=== PATIENT | female | born 1975 ===

== ENCOUNTER → 2020-05-02 08:47 | Outpatient (BNVA) | payer MEDICAID, SELFPAY | PROVIDERS: PCP Internal Medicine; Referring Provider Internal Medicine; Visit Provider Student in an Organized Health Care Education/Training Program | DX: M06.9 Rheumatoid arthritis, unspecified (principal); Z71.89 Other specified counseling | CPT/HCPCS: 99211 ==

== ENCOUNTER 2020-07-24 13:22 | Outpatient (REF) | payer MEDICAID, SELFPAY ==
[2020-07-24 13:56] LABS: Eosinophils Percent Auto 0.7 % (0-4); Hematocrit 35.2 % (37-47); MANUAL DIFF FLAG SCAN; SCAN SMEAR FLAG 1
[2020-07-24 13:57] LABS: Basophils Percent Auto 0.4 % (0-2); Eosinophils Absolute Auto 0.1 X10*3/uL (0.0-0.4); Hemoglobin 10.4 g/dl (12.0-16.0); Imm Gran Abs Auto 0.03 X10*3/uL (0.00-0.03); Imm Gran Pct Auto 0.4 % (0.0-0.4); Lymphocytes Absolute Auto 1.5 X10*3/uL (1.2-4.9); Mean Corpuscular HGB Conc 29.5 g/dl (31.0-35.0); Mean Corpuscular Hemoglobin 20.4 pg (27.0-33.0); Mean Corpuscular Volume 69.2 fL (80-98); Mean Platelet Volume 10.7 fL (9.4-12.3); Monocytes Absolute Auto 0.7 X10*3/uL (0.1-1.2); Monocytes Percent Auto 8.5 % (2-11); Neutrophils Absolute Auto 5.7 X10*3/uL (2.0-8.3); Platelet Count 226 X10*3/uL (160-400); Red Blood Count 5.09 X10*6/uL (4.20-5.50); Red Cell Distribution Width 17.7 % (11.0-16.0)
[2020-07-24 14:02] LABS: PLT ABN DIST 1
[2020-07-24 14:27] LABS: Alanine Aminotransferase 9 U/L (0-31); Albumin Level 3.9 g/dL (3.5-5.0); Alkaline Phosphatase 72 U/L (39-117); Anion Gap 11 (12-20); Aspartate Amino Transferase 14 U/L (5-31); Bilirubin Total 0.5 mg/dL (0.0-1.0); Blood Urea Nitrogen 11 mg/dL (9-16); C Reactive Protein 0.09 mg/dL (< or = 0.50); Calcium 8.4 mg/dL (8.4-10.2); Carbon Dioxide 24 mmol/L (22-29); Chloride 107 mmol/L (96-108); Estimated Glomerular Filt Rate > 60; Glucose Random 97 mg/dL (60-115); Potassium 4.3 mmol/l (3.3-5.1); Sodium 138 mmol/L (135-145); Total Protein 6.5 g/dL (6.5-8.0)
[2020-07-24 14:50] LABS: SLIDE REVIEW VERIFIED
== END 2020-07-24 13:23 | disposition home or self-care (01) ==
LOC: HO.LAB 13:22
PROVIDERS: Visit Provider Student in an Organized Health Care Education/Training Program
DX: M05.9 Rheumatoid arthritis with rheumatoid factor, unspecified (principal)
CPT/HCPCS: 36415; 80053; 85025; 86140

== ENCOUNTER → 2020-07-27 12:27 | Outpatient (BNVA) | payer MEDICAID, SELFPAY | PROVIDERS: PCP Internal Medicine; Referring Provider Internal Medicine; Visit Provider Student in an Organized Health Care Education/Training Program | DX: M05.9 Rheumatoid arthritis with rheumatoid factor, unspecified (principal); D64.9 Anemia, unspecified | CPT/HCPCS: 99212 ==

== ENCOUNTER 2020-08-17 10:07 | Outpatient (REF) | payer MEDICAID, SELFPAY | END 2020-08-17 10:08 | disposition home or self-care (01) | LOC: HO.MDS 10:07 | PROVIDERS: Visit Provider Internal Medicine | DX: D50.9 Iron deficiency anemia, unspecified (principal) | CPT/HCPCS: 96365; J2916 ==

== ENCOUNTER 2020-08-22 13:18 | Outpatient (REF) | payer MEDICAID, SELFPAY | END 2020-08-22 13:19 | disposition home or self-care (01) | LOC: HO.MDS 13:18 | PROVIDERS: Visit Provider Internal Medicine | DX: D50.9 Iron deficiency anemia, unspecified (principal) | CPT/HCPCS: 96365; J2916 ==

== ENCOUNTER 2020-08-27 10:39 | Outpatient (REF) | payer MEDICAID, SELFPAY | END 2020-08-27 10:40 | disposition home or self-care (01) | LOC: HO.MDS 10:39 | PROVIDERS: Visit Provider Internal Medicine | DX: D50.9 Iron deficiency anemia, unspecified (principal) | CPT/HCPCS: 96365; J2916 ==

== ENCOUNTER 2020-09-11 12:33 | Outpatient (REF) | payer MEDICAID, SELFPAY | END 2020-09-11 12:34 | disposition home or self-care (01) | LOC: HO.MDS 12:33 | PROVIDERS: Visit Provider Internal Medicine | DX: D50.9 Iron deficiency anemia, unspecified (principal) | CPT/HCPCS: 96365; J2916 ==

== ENCOUNTER 2020-09-17 08:37 | Outpatient (REF) | payer MEDICAID, SELFPAY | END 2020-09-17 08:38 | disposition home or self-care (01) | LOC: HO.MDS 08:37 | PROVIDERS: Visit Provider Internal Medicine | DX: D50.9 Iron deficiency anemia, unspecified (principal) | CPT/HCPCS: 96365; J2916 ==

== ENCOUNTER 2020-09-24 13:07 | Outpatient (REF) | payer MEDICAID, SELFPAY | END 2020-09-24 13:08 | disposition home or self-care (01) | LOC: HO.MDS 13:07 | PROVIDERS: Visit Provider Internal Medicine | DX: D50.9 Iron deficiency anemia, unspecified (principal) | CPT/HCPCS: 96365; J2916 ==

== ENCOUNTER 2020-10-01 12:44 | Outpatient (REF) | payer MEDICAID, SELFPAY | END 2020-10-01 12:45 | disposition home or self-care (01) | LOC: HO.MDS 12:44 | PROVIDERS: Visit Provider Internal Medicine | DX: D50.9 Iron deficiency anemia, unspecified (principal) | CPT/HCPCS: 96365; J2916 ==

== ENCOUNTER 2020-12-25 14:51 | Outpatient (REF) | payer MEDICAID, SELFPAY ==
[2020-12-25 15:48] LABS: MANUAL DIFF FLAG NO
[2020-12-25 15:54] LABS: Basophils Percent Auto 0.4 % (0-2); Eosinophils Absolute Auto 0.1 X10*3/uL (0.0-0.4); Eosinophils Percent Auto 1.6 % (0-4); Hemoglobin 13.2 g/dl (12.0-16.0); Imm Gran Abs Auto 0.02 X10*3/uL (0.00-0.03); Imm Gran Pct Auto 0.3 % (0.0-0.4); Lymphocytes Absolute Auto 2.4 X10*3/uL (1.2-4.9); Lymphocytes Percent Auto 31.3 % (20-40); Mean Corpuscular HGB Conc 32.2 g/dl (31.0-35.0); Mean Corpuscular Hemoglobin 27.4 pg (27.0-33.0); Mean Corpuscular Volume 85.1 fL (80-98); Mean Platelet Volume 10.9 fL (9.4-12.3); Monocytes Absolute Auto 0.4 X10*3/uL (0.1-1.2); Monocytes Percent Auto 5.5 % (2-11); Neutrophils Absolute Auto 4.6 X10*3/uL (2.0-8.3); Neutrophils Percent Auto 60.9 % (45-73); Platelet Count 195 X10*3/uL (160-400); Red Blood Count 4.82 X10*6/uL (4.20-5.50); Red Cell Distribution Width 15.4 % (11.0-16.0); White Blood Count 7.5 X10*3/uL (4.8-10.8)
[2020-12-25 16:26] LABS: Alanine Aminotransferase 16 U/L (0-31); Albumin Level 4.3 g/dL (3.5-5.0); Alkaline Phosphatase 78 U/L (39-117); Aspartate Amino Transferase 22 U/L (5-31); Bilirubin Total 0.5 mg/dL (0.0-1.0); Blood Urea Nitrogen 12 mg/dL (9-16); C Reactive Protein 0.07 mg/dL (< or = 0.50); Calcium 9.2 mg/dL (8.4-10.2); Estimated Glomerular Filt Rate > 60; Glucose Random 110 mg/dL (60-115); Total Protein 7.1 g/dL (6.5-8.0)
[2020-12-25 16:35] LABS: Erythrocyte Sedimentation Rate 2 MM/HR (0-20)
[2020-12-25 16:36] LABS: Anion Gap 13 (12-20); Carbon Dioxide 25 mmol/L (22-29); Chloride 107 mmol/L (96-108); Potassium 3.8 mmol/L (3.3-5.1); Sodium 141 mmol/L (135-145)
[2020-12-26 07:56] LABS: HBc Num1 0.08 S/CO (0.00-0.79); Hepatitis A Antibody IgM 0.15 Index (0-0.79); Hepatitis B Core Antibody Nonreactive (Nonreactive); ~HepC Num1 0.07 S/CO (0.00-0.79); ~Hepatitis A Antibody IgM Nonreactive (Nonreactive); ~Hepatitis C Antibody Nonreactive (Nonreactive)
[2020-12-26 08:06] LABS: HBS Num1 0.48 mIU/mL (0-7.99); HBsAGNum1 0.27 S/CO (0.00-0.99); Hepatitis B Surface Antigen Negative (Negative); ~Hepatitis B Surface Antibody NONREACTIVE (Nonreactive)
[2020-12-28 13:52] LABS: TS Negative Control Passed; TS Panel A 0; TS Panel B 0; TS Positive Control Passed; TSpotTB Negative (SeeBelow)
== END 2020-12-25 14:52 | disposition home or self-care (01) ==
LOC: HO.LAB 14:51
PROVIDERS: PCP Internal Medicine; Visit Provider Student in an Organized Health Care Education/Training Program
DX: M05.9 Rheumatoid arthritis with rheumatoid factor, unspecified (principal); E03.9 Hypothyroidism, unspecified; F17.210 Nicotine dependence, cigarettes, uncomplicated; Z85.850 Personal history of malignant neoplasm of thyroid; Z79.899 Other long term (current) drug therapy; Z79.52 Long term (current) use of systemic steroids; D64.9 Anemia, unspecified
CPT/HCPCS: 36415; 80053; 85025; 85652; 86140; 86481; 86704; 86706; 86709; 86803; 87340; 99212

== ENCOUNTER → 2021-03-12 13:41 | Outpatient (BNVA) | payer MEDICAID, SELFPAY | PROVIDERS: PCP Internal Medicine; Visit Provider Student in an Organized Health Care Education/Training Program ==

== ENCOUNTER → 2021-04-26 08:55 | Outpatient (BNVA) | payer MEDICAID, SELFPAY | PROVIDERS: PCP Internal Medicine; Visit Provider Nurse Practitioner Family | DX: M05.9 Rheumatoid arthritis with rheumatoid factor, unspecified (principal); D64.9 Anemia, unspecified | CPT/HCPCS: 99212 ==

== ENCOUNTER 2021-05-15 12:32 | Outpatient (REF) | payer MEDICAID, SELFPAY ==
--- NOTE | ~2021-05-15 | XR_ITS ---
EXAMINATION: XR WRIST, LEFT CLINICAL INFORMATION: Rheumatoid arthritis COMPARISON: Previous x-ray May 2018 TECHNIQUE: PA, lateral, and oblique views of the left wrist. FINDINGS: No fracture or dislocation is seen. There is borderline ulnar minus variance. There are are degenerative changes at the distal radial ulnar joint. Joint spaces are otherwise normal. Soft tissues are normal. XR/XR wrist LT 2V IMPRESSION: Borderline ulnar minus variance and degenerative change at the distal radial ulnar joint.
--- NOTE | ~2021-05-15 | XR_ITS ---
EXAMINATION: XR ELBOW, LEFT CLINICAL INFORMATION: Pain COMPARISON: Previous x-ray April 2016 TECHNIQUE: AP, lateral, and oblique views of the left elbow. FINDINGS: Bone alignment is normal. No acute fracture or dislocation is seen. There is stable appearance of the radial head likely related to old healed fracture. There is mild arthritis at the radial head and capitellum joint. There is no joint effusion. XR/XR elbow LT 2V IMPRESSION: Old healed radial head fracture and mild arthritis at the radial head capitellum joint is similar to 2016 exam.
== END 2021-05-15 12:33 | disposition home or self-care (01) ==
LOC: HO.XRAY 12:32
PROVIDERS: PCP Internal Medicine; Visit Provider Nurse Practitioner Family
DX: M25.522 Pain in left elbow (principal); M05.9 Rheumatoid arthritis with rheumatoid factor, unspecified
CPT/HCPCS: 73070; 73100

== ENCOUNTER 2021-09-17 10:50 | Outpatient (REF) | payer MEDICAID, SELFPAY ==
--- NOTE | ~2021-09-17 | XR_ITS ---
EXAMINATION: XR FOOT, RIGHT XR HAND/WRIST, RIGHT CLINICAL INFORMATION: Pain. COMPARISON: None TECHNIQUE: AP, lateral, and oblique views of right foot. 3 views right hand/wrist. FINDINGS: RIGHT FOOT: Visualized bones and joints of the right foot are unremarkable. No bony erosive changes or spurring. No visible fracture or dislocation. The ankle mortise and subtalar joints are normal. There is a small calcaneal heel and retrocalcaneal enthesophyte. RIGHT HAND: There is no visible acute fracture, dislocation or subluxation right hand or right wrist. There is minimal loss of DIP joints 1st through 5th digits with minimal periarticular spurring 5th digit. The MCP joints are normal. No bony erosive changes or loose body seen. There is mild nonspecific dorsolateral wrist soft tissue swelling. XR/XR hand wrist RT IMPRESSION: Unremarkable right foot. Mild dorsolateral wrist soft tissue swelling. There is no underlying fracture or dislocation right hand or right wrist. Minimal degenerative changes DIP joints with mild degenerative spurring DIP joint 5th digit.
--- NOTE | ~2021-09-17 | XR_ITS ---
EXAMINATION: XR FOOT, RIGHT XR HAND/WRIST, RIGHT CLINICAL INFORMATION: Pain. COMPARISON: None TECHNIQUE: AP, lateral, and oblique views of right foot. 3 views right hand/wrist. FINDINGS: RIGHT FOOT: Visualized bones and joints of the right foot are unremarkable. No bony erosive changes or spurring. No visible fracture or dislocation. The ankle mortise and subtalar joints are normal. There is a small calcaneal heel and retrocalcaneal enthesophyte. RIGHT HAND: There is no visible acute fracture, dislocation or subluxation right hand or right wrist. There is minimal loss of DIP joints 1st through 5th digits with minimal periarticular spurring 5th digit. The MCP joints are normal. No bony erosive changes or loose body seen. There is mild nonspecific dorsolateral wrist soft tissue swelling. XR/XR foot RT min 3V IMPRESSION: Unremarkable right foot. Mild dorsolateral wrist soft tissue swelling. There is no underlying fracture or dislocation right hand or right wrist. Minimal degenerative changes DIP joints with mild degenerative spurring DIP joint 5th digit.
== END 2021-09-17 10:51 | disposition home or self-care (01) ==
LOC: HO.XRAY 10:50
PROVIDERS: PCP Family Medicine; Visit Provider Family Medicine
DX: M79.671 Pain in right foot (principal); M06.9 Rheumatoid arthritis, unspecified
CPT/HCPCS: 73110; 73130; 73630

== ENCOUNTER 2023-04-23 09:13 | Outpatient (REF) | payer MEDICAID, SELFPAY ==
[2023-04-23 11:15] LABS: MANUAL DIFF FLAG NO
[2023-04-23 11:26] LABS: Basophils Percent Auto 0.7 % (0-2); Eosinophils Absolute Auto 0.1 X10*3/uL (0.0-0.4); Eosinophils Percent Auto 2.4 % (0-4); Hematocrit 35.5 % (37.0-47.0); Hemoglobin 9.3 g/dl (12.0-16.0); Imm Gran Abs Auto 0.01 X10*3/uL (0.00-0.03); Imm Gran Pct Auto 0.2 % (0.0-0.4); Lymphocytes Absolute Auto 1.3 X10*3/uL (1.2-4.9); Lymphocytes Percent Auto 28.5 % (20-40); Mean Corpuscular HGB Conc 26.2 g/dl (31.0-35.0); Monocytes Absolute Auto 0.6 X10*3/uL (0.1-1.2); Monocytes Percent Auto 13.1 % (2-11); Neutrophils Absolute Auto 2.5 x10*3/uL (2.0-8.3); Neutrophils Percent Auto 55.1 % (45-73); Platelet Count 211 X10*3/uL (160-400); Red Blood Count 5.48 X10*6/uL (4.20-5.50); White Blood Count 4.5 X10*3/uL (4.8-10.8)
[2023-04-23 11:28] LABS: Mean Corpuscular Volume 64.8 fL (80.0-98.0)
[2023-04-23 11:33] LABS: Estimated Average Glucose 111 mg/dL; Hemoglobin A1c % 5.5 % (<6.0)
[2023-04-23 12:37] LABS: Folate 7.5 ng/mL (> or = 4.0); Vitamin B12 1079 pg/mL (200-900)
[2023-04-23 12:43] LABS: Thyroid Stimulating Hormone 0.36 uIU/mL (0.32-4.0); Vitamin D 25-OH Total 8.4 ng/mL (>30)
[2023-04-23 12:49] LABS: Anion Gap 10 (12-20)
[2023-04-23 12:54] LABS: Alanine Aminotransferase 32 U/L (0-31); Albumin Level 4.1 g/dL (3.5-5.0); Alkaline Phosphatase 101 U/L (39-117); Aspartate Amino Transferase 26 U/L (5-31); Bilirubin Direct 0.1 mg/dL (0.0-0.5); Bilirubin Total 0.3 mg/dL (0.0-1.0); Blood Urea Nitrogen 10 mg/dL (9-16); Calcium 9.1 mg/dL (8.4-10.2); Carbon Dioxide 24 mmol/L (22-29); Chloride 109 mmol/L (96-108); Cholesterol 165 mg/dL (<200); Estimated Glomerular Filt Rate > 60; Glucose Random 80 mg/dL (60-115); HDL Cholesterol 50 mg/dL (>40); Iron 14 mcg/dL (30-160); LDL Cholesterol Calculated 98 mg/dL (<100); Percent Iron Saturation 4 % (15-50); Sodium 139 mmol/L (135-145); Total Iron Binding Capacity 369 mcg/dL (228-428); Total Protein 7.5 g/dL (6.5-8.0); Triglycerides 88 mg/dL (<150); Unsaturated Iron Binding 355 ug/dL
[2023-04-24 07:42] LABS: Syphilis Screen Nonreactive (Nonreactive)
[2023-04-24 08:06] LABS: HBsAGNum1 0.39 S/CO (0.00-0.99); HIV AB/AG Nonreactive (Nonreactive); HIV Num 1 0.05 S/CO (0.00-0.99); Hepatitis B Surface Antigen Negative (Negative); ~HepC Num1 0.07 S/CO (0.00-0.79); ~Hepatitis B Surface Antibody NONREACTIVE (Nonreactive); ~Hepatitis C Antibody Nonreactive (Nonreactive)
[2023-04-24 08:11] LABS: Hepatitis A Antibody IgM 0.28 Index (0-0.79); ~Hepatitis A Antibody IgM Nonreactive (Nonreactive)
== END 2023-04-23 09:14 | disposition home or self-care (01) ==
LOC: HO.HHCL 09:13
PROVIDERS: Visit Provider Family Medicine
DX: G47.00 Insomnia, unspecified (principal)
CPT/HCPCS: 36415; 80048; 80061; 80076; 82306; 82607; 82746; 83036; 83540; 84439; 84443; 85025; 86706; 86709; 86780; 86803; 87340; 87389

== ENCOUNTER 2023-06-16 10:58 | Outpatient (AMB) | payer MEDICAID, SELFPAY ==
--- NOTE | 2023-06-16 11:18 | A.OFFVIS_ITS ---
Intake Vital Signs 06/16/23 11:19 Height 4 ft 11 in Weight 165 lb 12.602 oz BMI 33.5 BP 110/82 Blood Pressure Location Rt brachial Position Sitting Pulse 93 Pulse Source Pulse Oximeter Temp 97.6 F Temp Source Skin Pulse Oximetry (%) 98 Oxygen Delivery Method Room Air Intake Visit Reasons: RA Intake Note: Patient presents today to follow up on osteoporosis. Reports sheryl arm stiffness and pain. Kiln Repairer Required: No Kiln Repairer Name: [email or web address] Accompanied by: Self / Same As Patient Allergies penicillin V Allergy (Intermediate, Verified 06/16/23 11:18) rash HPI HPI Comments History of Present Illness Details Mrs. Romero is a 45yoF with a PMH of follicular thyroid CA s/p thyroidectomy in 2016 with resulting hypothyroidism, anxiety/depression, migraines who presents for follow-up of Seropositive (RF+ CCP +) RA. Last seen in April 2021. At that time she was thought to be on Arava 20 mg daily and was started on Kevzara. Today patient reports she is not on any of those medications and that she had one injection of Kevzara. She reports she did not want to take it because of the possible side effects. However on further questioning she did not like the injections and really would prefer an oral medication. Today she reports pain in bilateral elbow and showed concerns for contracture. She reports that when she stands up up from a seated position she feels like her left knee locks up. Patient feels that the depression is stable, she is taking fluoxetine. Immunomodulating history: Started Orencia in December 2020,Patient states she does not feel any improvement since starting Orencia.. Initially treated with MTX 4 tabs but had worsening anemia so MTX was stopped in November 2018. failed Humira and Enbrel. [facility] Medical History (Updated 06/16/23 @ 13:38 by MARCIE Yao-) Right elbow pain Anemia Migraine headache Depression Anxiety Seropositive rheumatoid arthritis Surgical History (Updated 06/16/23 @ 11:28 by CHAPIS Moe) Hx of appendectomy Hx of thyroidectomy Family History Maternal Grandmother Colon cancer Social History (Updated 06/16/23 @ 11:25 by Dalymar Lyn, RMA) Alcohol intake: never Patient Tobacco Use Status: Current everyday Tobacco user Tobacco use type: Cigarette Cigarettes Per Day: 6 Years Smoked: 30 Review of Systems Const All systems reviewed & are unremarkable except as noted in HPI and below Physical Exam Vital Signs: Last Vital Signs Temp 97.6 F 06/16/23 11:19 Pulse 93 06/16/23 11:19 BP 110/82 06/16/23 11:19 Pulse Ox 98 06/16/23 11:19 Oxygen Delivery Method Room Air 06/16/23 11:19 BMI result Body Mass Index 33.5 APPEARANCE: Patient in no acute distress, groomed and appears nourished EYES no redness, pupils equal and reactive to light, eyelids normal EARS:? External ear normal, canal clear and tympanic membrane normal. NOSE/SINUS:? Airflow through both nares, no nasal discharge, no bleeding THROAT:? Oral mucosa moist, no ulcerations NECK:? No thyromegaly or masses, no adenopathy, trachea midline. HEART:? Regular rhythm, S1-S2 heard, no murmurs, rubs or gallops. LUNG:? Clear to percussion and auscultation EXTREMITIES:? No edema, no calf tenderness, normal peripheral pulses. NEURO:? Oriented and alert x3.? No focal weakness.? Reflexes symmetric.? Gait normal. SKIN:? There are no skin lesions evident. No objective signs of Raynaud's phenomenon. JOINT EXAM: Cervical Spine:.? Full range of motion without pain; no tenderness. Thoracic Spine:.? No scoliosis.? No tenderness on palpation. Lumbar Spine:.? Alignment normal.? Full range of motion without pain, no tenderness. Chest Wall:.? No tenderness, swelling, increased warmth or erythema. Hands:.? Normal pain-free range of motion without tenderness, swelling, increased warmth or erythema. 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 Wrists:.? Normal pain-free range of motion without tenderness, swelling, increased warmth or erythema. Elbows:. decreased range of motion with tenderness, swelling and increased warmth to bilateral lateral epicondyles Shoulders:.?? Full range of motion without pain. No tenderness, weakness, swelling, increased warmth or erythema. Hips:.? Full range of motion without pain. mild tenderness to right glute Hip bursa:.? No tenderness. Knees:.?? Normal pain-free range of motion without tenderness, swelling, increased warmth or erythema.? There is no effusion or crepitation. tenderness to right lateral, area of fibia head Ankles:.? Normal pain-free range of motion without tenderness, swelling, increased warmth or erythema. Feet:.? Normal pain-free range of motion without tenderness, swelling, increased warmth or erythema. Tender points:? No tenderness to digital palpation at the occiput, trapezius, second rib, lateral epicondyle, knees, greater trochanter bilaterally, and left gluteal. Results Reviewed Results Reviewed: Laboratory Tests 04/23/23 09:25 WBC 4.5 L Hgb 9.3 L Hct 35.5 L MCV 64.8 L MCH 17.0 L MCHC 26.2 L RDW 20.0 H [place] % (Auto) 13.1 H Chloride 109 H Anion Gap 10 L Iron 14 L TIBC 369 % Saturation 4 L Unsat Iron Binding 355 AST 26 ALT 32 H Alkaline Phosphatase 101 Vitamin B12 1079 H 25-OH Vitamin D Total 8.4 L Hepatitis A IgM Ab Nonreactive Hep Bs Antibody NONREACTIVE Hepatitis C Ab (EIA) Nonreactive Assessment & Plan Assessment & Plan (1) Seropositive rheumatoid arthritis: Code(s): M05.9 - Rheumatoid arthritis with rheumatoid factor, unspecified (2) Left elbow pain: Code(s): M25.522 - Pain in left elbow (3) Right elbow pain: Code(s): M25.521 - Pain in right elbow (4) Anemia: Code(s): D64.9 - Anemia, unspecified Qualifiers: Anemia type: iron deficiency Iron deficiency anemia type: inadequate dietary iron intake Qualified Code(s): D50.8 - Other iron deficiency anemias Plan: (5) Long-term use of immunosuppressant medication: Code(s): Z79.60 - intermediate card tender (current) use of unspecified immunomodulators and immunosuppressants Plan #CCP+RF+RA/Sheryl Elbow Pain: Ms. Romero was diagnosed with seropositive rheumatoid arthritis (+ RF + CCP) in May 2018, based on first available labs. In reviewing the records, I found that she been tried on several medications and has reported all, but Prednisone to be ineffective for joint pain and swelling. At some times she has taken 10 mg prednisone up to 3 rimes daily. In talking with patient today I found that it may be possible that she was not compliant with taking the medications because they were injectables and she had concerns for the possible side effects that she has read about. I explain to Miss Heather that this type of medication class is needed in order to manage her RA effectively. She agrees to start immuno medications but would prefer an oral option. I will start her on Leflunomide. Will obtain xrays of elbow and Updated labs, start patient on a Course of Prednisone and consider Leflunomide if labs ok. #ID Anemia: Patient has long standing AMY - Per Smear done 04/2023 Variably hypochromic microcytic anemia. She is being followed by Hematology. She has had iron infusion in the past with good effect and is taking oral iron supplement daily. Immunomodulators brings an increased risk for myelosuppression so we will monitor closely. #Senior Care Use of Immunomodulators: Will obtain base labs today. Discussed with patients potential side effects of medications. However, I cautioned her not to think that all those things will happen to her. I discuss with her that we do monitor with labs and interval visits to observe for side effects and she can always call the office with concerns. Excerpts From Rheum Visit : July 2020 Patient states she took approximately 5 doses of Humira but stop medication on her own as she states that after each dose, she felt very weak and states the medication did not help her pain. December 2020: At last visit, Enbrel was ordered for patient's rheumatoid arthritis. She states she took approximately 4 injections sporadically and had headaches after each dose so she self discontinued the medication. She did not contact our office to let us know that she was having any of these symptoms. She continues to take prednisone 10 mg 3 times daily to help with her joint pain. She did not do the labs that were ordered after her last visit. March 2021 Patient states she does not feel any improvement since starting Orencia. She continues to report pain in her hands and feet that is generally worse at night. Also states that her feet can become swollen towards the end of the day. She has discontinued prednisone and does feel worse off the medication. Her previous inflammatory markers were at goal. Will discontinue orencia and start kevzara Orders: Orders Erythrocyte Sedimentation Rate 06/16/23 M05.9 - Rheumatoid arthritis with rheumatoid factor, unspecified Complete Blood Count Auto Diff 06/16/23 M05.9 - Rheumatoid arthritis with rheumatoid factor, unspecified, Z79.899 - Other mcfp (current) drug therapy C Reactive Protein 06/16/23 M05.9 - Rheumatoid arthritis with rheumatoid factor, unspecified Comprehensive Met. Panel 06/16/23 M05.9 - Rheumatoid arthritis with rheumatoid factor, unspecified XR elbow LT min 3V 06/16/23 M05.9 - Rheumatoid arthritis with rheumatoid factor, unspecified, M25.522 - Pain in left elbow XR elbow RT min 3V 06/16/23 M05.9 - Rheumatoid arthritis with rheumatoid factor, unspecified, M25.521 - Pain in right elbow T Spot TB 06/16/23 M05.9 - Rheumatoid arthritis with rheumatoid factor, unspecified, M25.522 - Pain in left elbow Medications: New prednisone 3 Tablets per day x 7 days, 2 tablets per day x 7 days, 1 tablet per day x 7 days. stop 60 tabs 0RF M05.9 - Rheumatoid arthritis with rheumatoid f actor, unspecified, M25.521 - Pain in right elbow, M25.522 - Pain in left elbow Coding Level of Care Code Est Pt Level 4 (92153) Diagnoses Seropositive rheumatoid arthritis M05.9 Left elbow pain M25.522 Right elbow pain M25.521 Iron deficiency anemia secondary to inadequate dietary iron intake D50.8 Anemia type: iron deficiency Iron deficiency anemia type: inadequate dietary iron intake Long-term use of immunosuppressant medication Z79.60
[2023-06-16 11:19] VITALS: BP 110/82; PULSE 93; TEMP 36.4; O2SAT 98; BMI 33.5
== END 2023-06-16 11:54 | disposition home or self-care (01) ==
LOC: HO.RHE 10:58
PROVIDERS: PCP Family Medicine; Visit Provider Nurse Practitioner Family
DX: M05.79 Rheumatoid arthritis with rheumatoid factor of multiple sites without organ or systems involvement (principal); M25.522 Pain in left elbow; M25.521 Pain in right elbow; D50.8 Other iron deficiency anemias; Z79.60 Long term (current) use of unspecified immunomodulators and immunosuppressants
CPT/HCPCS: 99214

== ENCOUNTER → 2023-06-16 10:58 | Outpatient (BNVA) | payer MEDICAID, SELFPAY | PROVIDERS: PCP Family Medicine; Visit Provider Nurse Practitioner Family | DX: M05.9 Rheumatoid arthritis with rheumatoid factor, unspecified (principal); M25.522 Pain in left elbow; M25.521 Pain in right elbow; D50.8 Other iron deficiency anemias; Z79.60 Long term (current) use of unspecified immunomodulators and immunosuppressants | CPT/HCPCS: 99212 ==

== ENCOUNTER 2023-06-16 12:28 | Outpatient (REF) | payer MEDICAID, SELFPAY ==
[2023-06-16 13:26] LABS: MANUAL DIFF FLAG NO
[2023-06-16 13:55] LABS: Basophils Percent Auto 0.5 % (0-2); Eosinophils Absolute Auto 0.1 X10*3/uL (0.0-0.4); Eosinophils Percent Auto 1.3 % (0-4); Hematocrit 34.9 % (37.0-47.0); Hemoglobin 9.4 g/dl (12.0-16.0); Imm Gran Abs Auto 0.03 X10*3/uL (0.00-0.03); Imm Gran Pct Auto 0.4 % (0.0-0.4); Lymphocytes Absolute Auto 2.1 X10*3/uL (1.2-4.9); Lymphocytes Percent Auto 26.5 % (20-40); Mean Corpuscular HGB Conc 26.9 g/dl (31.0-35.0); Mean Corpuscular Hemoglobin 16.9 pg (27.0-33.0); Monocytes Absolute Auto 0.8 X10*3/uL (0.1-1.2); Monocytes Percent Auto 9.5 % (2-11); Neutrophils Percent Auto 61.8 % (45-73); Platelet Count 218 X10*3/uL (160-400); Red Blood Count 5.56 X10*6/uL (4.20-5.50); Red Cell Distribution Width 21.2 % (11.0-16.0)
[2023-06-16 13:56] LABS: Mean Corpuscular Volume 62.8 fL (80.0-98.0)
[2023-06-16 14:34] LABS: Alanine Aminotransferase 22 U/L (0-31); Albumin Level 4.2 g/dL (3.5-5.0); Alkaline Phosphatase 107 U/L (39-117); Anion Gap 12 (12-20); Aspartate Amino Transferase 21 U/L (5-31); Bilirubin Total 0.4 mg/dL (0.0-1.0); Blood Urea Nitrogen 12 mg/dL (9-16); C Reactive Protein 0.11 mg/dL (< or = 0.50); Calcium 8.7 mg/dL (8.4-10.2); Carbon Dioxide 22 mmol/L (22-29); Chloride 110 mmol/L (96-108); Estimated Glomerular Filt Rate > 60; Glucose Random 91 mg/dL (60-115); Potassium 3.9 mmol/L (3.3-5.1); Sodium 140 mmol/L (135-145); Total Protein 7.6 g/dL (6.5-8.0)
[2023-06-16 15:03] LABS: Erythrocyte Sedimentation Rate 7 MM/HR (0-20)
== END 2023-06-16 12:29 | disposition home or self-care (01) ==
LOC: HO.10HDL 12:28
PROVIDERS: Visit Provider Nurse Practitioner Family
DX: M05.9 Rheumatoid arthritis with rheumatoid factor, unspecified (principal); M25.521 Pain in right elbow; M25.522 Pain in left elbow; Z79.60 Long term (current) use of unspecified immunomodulators and immunosuppressants
CPT/HCPCS: 36415; 80053; 85025; 85652; 86140; 99212

== ENCOUNTER 2023-07-14 09:18 | Outpatient (REF) | payer MEDICAID, SELFPAY ==
--- NOTE | ~2023-07-14 | XR_ITS ---
EXAMINATION: Bilateral elbow. CLINICAL INDICATIONS: Rheumatoid arthritis with rheumatoid factor. Pain. COMPARISON: Left elbow 04/21/2016 and 05/15/2021. TECHNIQUE: 4 views right elbow and 3 views left elbow. FINDINGS: RIGHT ELBOW: There is minimal reduction in the radioulnar and humeral joint space with moderate ventral spurring along the coronoid process. There is no joint effusion, loose bodies or fracture seen. The soft tissues are normal. LEFT ELBOW: The joint spaces are maintained normal. There are no loose bodies, bony erosive changes or spurring. No visible acute fracture, dislocation. No abnormal joint effusion. The soft tissues are normal.
[2023-07-14 10:56] LABS: Hemoglobin 9.2 g/dl (12.0-16.0); Mean Corpuscular HGB Conc 27.1 g/dl (31.0-35.0); Platelet Count 192 X10*3/uL (160-400); Red Cell Distribution Width 21.4 % (11.0-16.0); White Blood Count 5.8 X10*3/uL (4.8-10.8)
[2023-07-14 11:47] LABS: Iron 16 mcg/dL (30-160); Percent Iron Saturation 4 % (15-50); Total Iron Binding Capacity 368 mcg/dL (228-428); Unsaturated Iron Binding 352 ug/dL
[2023-07-14 11:53] LABS: Ferritin 6 ng/mL (10-250); Vitamin D 25-OH Total 10.3 ng/mL (>30)
[2023-07-14 12:08] LABS: Folate 8.3 ng/mL (> or = 4.0); Vitamin B12 615 pg/mL (200-900)
== END 2023-07-14 09:19 | disposition home or self-care (01) ==
LOC: HO.LAB 09:18
PROVIDERS: Family Medicine; Absent Provider Internal Medicine; PCP Internal Medicine; Visit Provider Nurse Practitioner Family
DX: M25.521 Pain in right elbow (principal); M05.9 Rheumatoid arthritis with rheumatoid factor, unspecified; M25.522 Pain in left elbow; D64.9 Anemia, unspecified
CPT/HCPCS: 36415; 73080; 82306; 82607; 82728; 82746; 83540; 85027

== ENCOUNTER 2023-07-17 12:29 | Outpatient (AMB) | payer MEDICAID, SELFPAY ==
--- NOTE | 2023-07-17 12:38 | A.OFFVIS_ITS ---
Intake Vital Signs 07/17/23 12:50 Height 4 ft 11 in Weight 163 lb 9.328 oz BMI 33.0 BP 122/96 H Blood Pressure Location Lt brachial Position Sitting Pulse 86 Pulse Source Pulse Oximeter Temp 97.2 F Temp Source Skin Pulse Oximetry (%) 97 Oxygen Delivery Method Room Air Intake Visit Reasons: Bilateral Elbow Pain, Seropos RA. Intake Note: Patient last seen 06/16/23, presents today for follow up and test results. Manufacturing Production Technician Required: No Accompanied by: Friend Allergies penicillin V Allergy (Intermediate, Verified 07/17/23 12:38) rash HPI HPI Comments History of Present Illness Details Mrs. Romero is a 45yoF with a PMH of follicular thyroid CA s/p thyroidectomy in 2016 with resulting hypothyroidism, anxiety/depression, migraines who presents for follow-up of Seropositive (RF+ CCP +) RA to review labs and assess for improvement on Prednisone. The patient cannot attest to great improvement on the course of Prednisone. She continues with elbow pain, left greater than right. Last Visit Mrs. Romero is a 45yoF with a PMH of follicular thyroid CA s/p thyroidectomy in 2016 with resulting hypothyroidism, anxiety/depression, migraines who presents for follow-up of Seropositive (RF+ CCP +) RA. Last seen in April 2021. At that time she was thought to be on Arava 20 mg daily and was started on Kevzara. Today patient reports she is not on any of those medications and that she had one injection of Kevzara. She reports she did not want to take it because of th e possible side effects. However on further questioning she did not like the injections and really would prefer an oral medication. Today she reports pain in bilateral elbow and showed concerns for contracture. She reports that when she stands up up from a seated position she feels like her left knee locks up. Patient feels that the depression is stable, she is taking fluoxetine. Immunomodulating history: Started Orencia in December 2020,Patient states she does not feel any improvement since starting Orencia.. Initially treated with MTX 4 tabs but had worsening anemia so MTX was stopped in November 2018. failed Humira and Enbrel. [facility] Medical History (Updated 06/16/23 @ 13:38 by LANDON Yao) Right elbow pain Anemia Migraine headache Depression Anxiety Seropositive rheumatoid arthritis Surgical History Hx of appendectomy Hx of thyroidectomy Family History Maternal Grandmother Colon cancer Social History (Updated 07/17/23 @ 12:51 by CHAPIS Dodd) Alcohol intake: never Patient Tobacco Use Status: Current everyday Tobacco user Tobacco use type: Cigarette Cigarettes Per Day: 10 Years Smoked: 30 Physical Exam Vital Signs: Last Vital Signs Temp 97.2 F 07/17/23 12:50 Pulse 86 07/17/23 12:50 BP 122/96 H 07/17/23 12:50 Pulse Ox 97 07/17/23 12:50 Oxygen Delivery Method Room Air 07/17/23 12:50 BMI result Body Mass Index 33.0 APPEARANCE: Patient in no acute distress, groomed and appears nourished HEART:? Regular rhythm, S1-S2 heard, no murmurs, rubs or gallops. LUNG:? Clear to percussion and auscultation EXTREMITIES:? No edema, no calf tenderness, normal peripheral pulses. NEURO:? Oriented and alert x3.? No focal weakness.? Reflexes symmetric.? Gait normal. SKIN:? There are no skin lesions evident. No objective signs of Raynaud's phenomenon. JOINT EXAM: Hands:.? Normal pain-free range of motion without tenderness, swelling, increased warmth or erythema. Able to make a full fist and has a good paragliding instructor strength. Wrists:.? Normal pain-free range of motion without tenderness, swelling, increased warmth or erythema. Elbows:. Bilateral Contracture, decreased range of motion with tenderness to left, left swelling but no increased warmth to bilateral lateral epicondyles Shoulders:.?? Full range of motion without pain. No tenderness, weakness, swelling, increased warmth or erythema. Hips:.? Full range of motion without pain. mild tenderness to right glute Hip bursa:.? No tenderness. Knees:.?? Normal pain-free range of motion without tenderness, swelling, increased warmth or erythema.? There is no effusion or crepitation. tenderness to right lateral, area of fibia head Ankles:.? Normal pain-free range of motion without tenderness, swelling, increased warmth or erythema. Feet:.? Normal pain-free range of motion without tenderness, swelling, increased warmth or erythema. Tender points:? No tenderness to digital palpation at the occiput, trapezius, second rib, lateral epicondyle, knees, greater trochanter bilaterally, and left gluteal. Office Procedures Joint Injection/Drain Joint Injection/Drain Primary Site: left tennis elbow Prep: site was prepped using aseptic technique Injected: 80 mg of, Kenalog, with 1 mL of and 1% plain lidocaine Approach Used: anterolateral Procedure: The patient tolerated the procedure well Coding 87477 - Epicondyle Procedure code (CPT) selection complete Results Reviewed Results Reviewed: Laboratory Tests 06/16/23 07/14/23 12:33 09:36 Hgb 9.2 L Hct 34.0 L MCV 63.0 L ESR 7 AST 21 ALT 22 Alkaline Phosphatase 107 C-Reactive Protein 0.11 07/14/2023 EXAMINATION: Bilateral elbow. CLINICAL INDICATIONS: Rheumatoid arthritis with rheumatoid factor. Pain. COMPARISON: Left elbow 04/21/2016 and 05/15/2021. TECHNIQUE: 4 views right elbow and 3 views left elbow. FINDINGS: RIGHT ELBOW: There is minimal reduction in the radioulnar and humeral joint space with moderate ventral spurring along the coronoid process. There is no joint effusion, loose bodies or fracture seen. The soft tissues are normal. LEFT ELBOW: The joint spaces are maintained normal. There are no loose bodies, bony erosive changes or spurring. No visible acute fracture, dislocation. No abnormal joint effusion. The soft tissues are normal. 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 Romero was diagnosed with seropositive rheumatoid arthritis (+ RF + CCP) in May 2018, based on first available labs. She says the prednisone helped a little. However, on PE i can see that the swelling to the left elbow is very reduced. I will start her on Leflunomide. Xrays of the left elbow suggest erosion. I think the RA is mainly in her elbows. She worried about the obvious contracture of her elbow joints. I will refer her to a phisiatry for evaluation and treatment. I will inject her left elbow today because of the pain. ESR/CRP at goal. #ID Anemia: Patient has long standing AMY - Per Smear done 04/2023 Variably hypochromic microcytic anemia. She is being followed by Hematology. She has had iron infusion in the past with good effect and is taking oral iron supplement daily. Immunomodulators brings an increased risk for myelosuppression so we will monitor closely. #Fdc Use of Immunomodulators: Discussed with patients potential side effects of medications. However, I cautioned her not to think that all those things will happen to her. I discuss with her that we do monitor with labs and interval visits to observe for side effects and she can always call the office with concerns. I have spent 30 minutes reviewing results, evaluating patient and documenting. Follow up in 2 months Excerpts From Rheum Visit : July 2020 Patient states she took approximately 5 doses of Humira but stop medication on her own as she states that after each dose, she felt very weak and states the medication did not help her pain. December 2020: At last visit, Enbrel was ordered for patient's rheumatoid arthritis. She states she took approximately 4 injections sporadically and had headaches after each dose so she self discontinued the medication. She did not contact our office to let us know that she was having any of these symptoms. She continues to take prednisone 10 mg 3 times daily to help with her joint pain. She did not do the labs that were ordered after her last visit. March 2021 Patient states she does not feel any improvement since starting Orencia. She continues to report pain in her hands and feet that is generally worse at night. Also states that her feet can become swollen towards the end of the day. She has discontinued prednisone and does feel worse off the medication. Her previous inflammatory markers were at goal. Will discontinue orencia and start kevzara Orders: Orders Erythrocyte Sedimentation Rate Today M05.9 - Rheumatoid arthritis with rheumatoid factor, unspecified C Reactive Protein Today M05.9 - Rheumatoid arthritis with rheumatoid factor, unspecified Alanine Aminotransferase Today M05.9 - Rheumatoid arthritis with rheumatoid factor, unspecified, Z79.899 - Other plasterer stucco (current) drug therapy Aspartate Amino Transferase Today M05.9 - Rheumatoid arthritis with rheumatoid factor, unspecified, Z79.899 - Other plasterer stucco (current) drug therapy AMB Joint Injection/Aspiration Today M25.522 - Pain in left elbow Complete Blood Count Auto Diff Today M05.9 - Rheumatoid arthritis with rheumatoid factor, unspecified, Z79.899 - Other retirement (current) drug therapy Creatinine Today M05.9 - Rheumatoid arthritis with rheumatoid factor, unspecified, Z79.899 - Other retirement (current) drug therapy Referrals Physiatry Referral M05.9 - Rheumatoid arthritis with rheumatoid factor, unspecified, M25.521 - Pain in right elbow, M25.522 - Pain in left elbow Medications: New leflunomide 20 mg PO DAILY 90 tabs 0RF M05.9 - Rheumatoid arthritis with rheumatoid factor, unspecified Coding Level of Care Code Est Pt Level 3 (34605) Diagnoses Seropositive rheumatoid arthritis M05.9 Left elbow pain M25.522 Right elbow pain M25.521 Long-term use of immunosuppressant medication Z79.60 CPT Codes Coding - Joint 2: 61325 - Epicondyle ([id number])
[2023-07-17 12:50] VITALS: BP 122/96; PULSE 86; TEMP 36.2; O2SAT 97; BMI 33.0
== END 2023-07-17 13:27 | disposition home or self-care (01) ==
PROVIDERS: PCP Family Medicine; Visit Provider Nurse Practitioner Family
DX: M05.79 Rheumatoid arthritis with rheumatoid factor of multiple sites without organ or systems involvement (principal); M25.522 Pain in left elbow; M25.521 Pain in right elbow; Z79.60 Long term (current) use of unspecified immunomodulators and immunosuppressants
CPT/HCPCS: 20550; 99213

== ENCOUNTER → 2023-07-17 12:29 | Outpatient (BNVA) | payer MEDICAID, SELFPAY | PROVIDERS: PCP Family Medicine; Visit Provider Nurse Practitioner Family | DX: M25.522 Pain in left elbow (principal); M25.521 Pain in right elbow; M05.9 Rheumatoid arthritis with rheumatoid factor, unspecified; Z79.60 Long term (current) use of unspecified immunomodulators and immunosuppressants | CPT/HCPCS: 20550; 99212; J3301 ==

== ENCOUNTER → 2024-03-02 14:33 | Outpatient (RCR) | payer MEDICAID, SELFPAY ==
[2020-08-07 14:19] VITALS: BP 125/76; PULSE 70; RESP 12; TEMP 36.3; O2SAT 98; BMI 31.6
--- NOTE | 2020-08-07 14:32 | P.PNHO_ITS ---
Medical Summary - Medical Summary Date of Service: 08/07/20 Chief complaint: Weakness Medical Summary: Diagnosis: Iron deficiency anemia 2019 Hemoglobin 9.8, MCV 64.9, serum iron of 11, ferritin less than 1. Vitamin B12 198, folate 11.2, LDH 191. Normal liver and kidney functions. Patient received iron dextran in 2019. Interval History Interval history: Patient is here in follow-up. She reports feeling weak and tired again. She does not understand why she feels that way since she is taking oral iron and her menstrual periods are not particularly heavy. She reports some abdominal discomfort which she attributes to taking iron. She denies any hematochezia or melena. No loss of appetite or weight loss. No severe heartburn or reflux symptoms. No exertional chest pain or shortness of breath. Review of Systems - Constitutional Reports no additional constitutional complaints - Cardiovascular Reports no additional cardiovascular complaints - Respiratory Reports no additional respiratory complaints - Gastrointestinal Reports no additional gastrointestinal complaints [facility] Medical History: Medical History (Last Updated 08/07/20 @ 10:30 by Stacey Eckert) Anemia Anxiety Depression Migraine headache Seropositive rheumatoid arthritis Family History: Family History (Last Updated 08/07/20 @ 10:31 by Stacey Eckert) Maternal Grandmother Colon cancer Surgical History: Surgical History (Last Updated 08/07/20 @ 10:30 by Stacey Eckert) Hx of thyroidectomy Social History: Social History (Last Updated 08/07/20 @ 14:14 by Stacey Eckert) Alcohol History: Alcohol intake: current Alcohol History Details: Alcohol intake frequency: a few times a week Tobacco History: Tobacco Type: Cigarette Smoked in Last 30 Days: Yes Substance Use History: Use of substances other than those prescribed or required for medical reasons : No Home Medications and Allergies Home Medications Medication Instructions Recorded Confirmed Type cholecalciferol (vitamin D3) 25 25 mcg PO DAILY 07/27/20 08/07/20 History mcg (1,000 unit) capsule clonazepam 1 mg tablet 1 mg PO BEDTIME 07/27/20 08/07/20 History ferrous fumarate 325 mg (106 mg 325 mg PO DAILY tab 07/27/20 08/07/20 History iron) tablet fluoxetine 40 mg capsule 40 mg PO DAILY 07/27/20 08/07/20 History leflunomide 20 mg tablet 20 mg PO DAILY 07/27/20 08/07/20 History levothyroxine 125 mcg capsule 125 mcg PO DAILY 07/27/20 08/07/20 History tizanidine 2 mg capsule 2 mg PO BEDTIME 07/27/20 08/07/20 History trazodone 150 mg tablet 150 mg PO BEDTIME PRN 07/27/20 08/07/20 History valproic acid 250 mg capsule 250 mg PO TID 07/27/20 08/07/20 History verapamil 180 mg 24 hr 180 mg PO DAILY 07/27/20 08/07/20 History capsule,extended release Allergies Allergy/AdvReac Type Severity Reaction Status Date / Time penicillin V Allergy Intermediate rash Verified 07/27/20 12:33 Penicillins [PENICILLINS] Allergy Unknown UNKNOWN Verified 07/27/20 12:33 Exam Vital signs: Vital Signs Temp 97.4 F 08/07/20 14:19 Pulse 70 08/07/20 14:19 Resp 12 08/07/20 14:19 BP 125/76 08/07/20 14:19 Pulse Ox 98 08/07/20 14:19 Intake & Output 08/06/20 08/07/20 08/07/20 18:59 06:59 18:59 Other: Weight 71.2 kg Weight 71.2 kg Body Mass Index 31.6 - Routine HEENT Exam Head: Present: normal inspection Eye: Present: EOMI - Routine Neck Exam Absent: lymphadenopathy - Routine Respiratory Exam Present: CTAB - Routine Cardiovascular Exam Cardiovascular: Present: S1, S2 - Routine Abdominal Exam Present: normal bowel sounds - Routine Extremities Exam Absent: pedal edema - Routine Skin Exam Present: intact. Absent: erythema Data - Labs CBC & Chem 7: 08/07/20 14:38 Progress Note: A/P (1) Anemia Status: Chronic Assessment and plan: 1. This is a 45-year-old woman with longstanding history of iron deficiency anemia. She most likely has iron deficiency anemia secondary to menstrual blood losses and poor oral iron absorption. She also has rheumatoid arthritis and thyroid problems which could be contributing to her anemia. She received parenteral iron therapy in 2019 with good response. She has become iron deficient again and anemic. Her menstrual cycles are not particularly heavy. Etiology could still be inadequate oral absorption of dietary iron but I have recommended that she have GI evaluation as well. She is being scheduled for parenteral iron therapy. 2. Vitamin B12 deficiency. 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 She is on oral supplementation. Follow up in 4 months. - Time Spent With Patient Total time spent is greater than 50% in coordination of care (as documented) at patient's floor/unit and/or counseling patient: 25 - 35 minutes
[2020-08-07 14:40] LABS: MANUAL DIFF FLAG NO
[2020-08-07 14:48] LABS: Basophils Percent Auto 0.2 % (0-2); Eosinophils Percent Auto 0.5 % (0-4); Hematocrit 36.4 % (37-47); Hemoglobin 10.6 g/dl (12.0-16.0); Imm Gran Abs Auto 0.01 X10*3/uL (0.00-0.03); Imm Gran Pct Auto 0.2 % (0.0-0.4); Lymphocytes Absolute Auto 1.5 X10*3/uL (1.2-4.9); Lymphocytes Percent Auto 24.2 % (20-40); Mean Corpuscular HGB Conc 29.1 g/dl (31.0-35.0); Mean Corpuscular Hemoglobin 20.2 pg (27.0-33.0); Mean Corpuscular Volume 69.3 fL (80-98); Mean Platelet Volume 9.8 fL (9.4-12.3); Monocytes Absolute Auto 0.6 X10*3/uL (0.1-1.2); Monocytes Percent Auto 9.5 % (2-11); Neutrophils Absolute Auto 4.1 X10*3/uL (2.0-8.3); Neutrophils Percent Auto 65.4 % (45-73); Platelet Count 238 X10*3/uL (160-400); Red Blood Count 5.25 X10*6/uL (4.20-5.50); Red Cell Distribution Width 17.9 % (11.0-16.0); White Blood Count 6.2 X10*3/uL (4.8-10.8)
[2020-08-07 15:19] LABS: Iron 18 mcg/dL (30-160); Percent Iron Saturation 4 % (15-50); Total Iron Binding Capacity 402 mcg/dL (228-428); Unsaturated Iron Binding 384 ug/dL
--- NOTE | 2020-08-10 11:19 | MHC.HEMONCMA ---
Patient scheduled for 08/17/2020 at 10am for her ferrilicit infusion, patient has been notified.
== END | disposition home or self-care (01) ==
LOC: HO.ONC 08-07 13:56
PROVIDERS: Visit Provider Internal Medicine
DX: D50.9 Iron deficiency anemia, unspecified (principal); E53.8 Deficiency of other specified B group vitamins
CPT/HCPCS: 36415; 83540; 85025; 99214

== ENCOUNTER 2024-03-22 09:44 | Outpatient (REF) | payer MEDICAID, SELFPAY ==
[2024-03-22 11:41] LABS: MANUAL DIFF FLAG NO
[2024-03-22 12:00] LABS: Alanine Aminotransferase 19 U/L (0-31); Albumin Level 3.9 g/dL (3.5-5.0); Alkaline Phosphatase 116 U/L (39-117); Anion Gap 9 (12-20); Aspartate Amino Transferase 21 U/L (5-31); Basophils Percent Auto 0.6 % (0-2); Bilirubin Total 0.4 mg/dL (0.0-1.0); Blood Urea Nitrogen 11 mg/dL (9-16); C Reactive Protein 0.24 mg/dL (< or = 0.50); Calcium 8.5 mg/dL (8.4-10.2); Carbon Dioxide 24 mmol/L (22-29); Chloride 110 mmol/L (96-108); Eosinophils Absolute Auto 0.1 X10*3/uL (0.0-0.4); Eosinophils Percent Auto 1.3 % (0-4); Estimated Glomerular Filt Rate > 60; Glucose Random 103 mg/dL (60-115); Hematocrit 32.6 % (37.0-47.0); Imm Gran Abs Auto 0.02 X10*3/uL (0.00-0.03); Imm Gran Pct Auto 0.4 % (0.0-0.4); Lymphocytes Absolute Auto 1.1 X10*3/uL (1.2-4.9); Lymphocytes Percent Auto 22.4 % (20-40); Mean Corpuscular HGB Conc 27.6 g/dl (31.0-35.0); Mean Corpuscular Hemoglobin 17.4 pg (27.0-33.0); Monocytes Absolute Auto 0.6 X10*3/uL (0.1-1.2); Monocytes Percent Auto 11.7 % (2-11); Neutrophils Percent Auto 63.6 % (45-73); Platelet Count 186 X10*3/uL (160-400); Potassium 3.9 mmol/L (3.3-5.1); Red Blood Count 5.17 X10*6/uL (4.20-5.50); Red Cell Distribution Width 20.9 % (11.0-16.0); Sodium 139 mmol/L (135-145); Total Protein 6.9 g/dL (6.5-8.0); White Blood Count 4.7 X10*3/uL (4.8-10.8)
[2024-03-22 12:01] LABS: Mean Corpuscular Volume 63.1 fL (80.0-98.0)
[2024-03-22 12:30] LABS: Erythrocyte Sedimentation Rate 5 MM/HR (0-20)
[2024-03-25 09:39] LABS: TS Negative Control Passed; TS Panel A 0; TS Panel B 0; TS Positive Control Passed; TSpotTB Negative (Negative)
== END 2024-03-22 09:45 | disposition home or self-care (01) ==
LOC: HO.HHCL 09:44
PROVIDERS: Visit Provider Student in an Organized Health Care Education/Training Program
DX: M05.9 Rheumatoid arthritis with rheumatoid factor, unspecified (principal); Z11.7 Encounter for testing for latent tuberculosis infection; Z79.899 Other long term (current) drug therapy
CPT/HCPCS: 36415; 80053; 85025; 85652; 86140; 86481

== ENCOUNTER 2024-04-21 07:44 | Outpatient (AMB) | payer MEDICAID, SELFPAY ==
--- NOTE | 2024-04-21 07:48 | A.OFFVIS_ITS ---
Vital Signs 04/21/24 07:51 Height 4 ft 11 in Weight 155 lb 10.342 oz BMI 31.4 BP 112/70 Blood Pressure Location Lt brachial Position Sitting Pulse 82 Pulse Source Pulse Oximeter Pulse Oximetry (%) 97 Oxygen Delivery Method Room Air Intake Visit Reasons: RA/CM Intake Note: Patient presents for RA. 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 Services: Gas Pipe Layer Present Gas Pipe Layer Name: Teresa [id number] Allergies penicillin V Allergy (Intermediate, Verified 04/21/24 07:51) rash Medication List - Last Reconciled 04/21/24 by Geno Beatty MD cholecalciferol (vitamin D3) 1,250 mcg PO QWEEK 90 days clonazepam 1 mg PO BEDTIME docusate sodium 100 mg PO DAILY PRN ferrous fumarate 325 mg PO DAILY fluoxetine 40 mg PO DAILY hydroxyzine pamoate 50 mg PO BID PRN levothyroxine 150 mcg PO DAILY melatonin 5 mg PO DAILY omeprazole 40 mg PO DAILY oxcarbazepine 300 mg PO BID prazosin 2 mg PO BEDTIME prazosin 1 mg PO BEDTIME sertraline 100 mg PO DAILY trazodone 150 mg PO BEDTIME PRN valproic acid 250 mg PO TID verapamil ER 180 mg PO DAILY zolpidem 10 mg PO BEDTIME HPI Comments Details: Patient is a 48-year-old female with follicular thyroid cancer status post thyroidectomy in 2016 with subsequent hypothyroidism, anxiety/depression, migraines who presents for follow-up of seropositive (RF+, CCP+), erosive (elb ow) rheumatoid arthritis Interval History: Last seen 07/17/2023. At that time patient was having a flare of her rheumatoid arthritis in her right elbow. That was minimally responsive to prednisone. Leflunomide was added to her medication regimen. Today she is complaining of pain in her elbows with prolonged morning stiffness. Also notes pain in her hands and inability to open and close him in the mornings. Rheumatologic History: Diagnosed May 2018 Initially treated with MTX 4 tabs but had worsening anemia so MTX was stopped in November 2018. Failed Humira and Enbrel. Started Orencia in December 2020, Patient states she does not feel any improvement since starting Orencia. ?Stopped Leflunomide started 07/2023. Ineffective Current Rheumatology Medication(s): Leflunomide 20mg daily [facility] Medical History (Updated 04/21/24 @ 13:00 by Geno Beatty MD) On prednisone therapy Long-term current use of tocilizumab Vitamin D deficiency Right elbow pain Anemia Migraine headache Depression Anxiety Seropositive rheumatoid arthritis Surgical History Hx of appendectomy Hx of thyroidectomy Family History Maternal Grandmother Colon cancer Social History Alcohol intake: never Patient Tobacco Use Status: Current everyday Tobacco user Tobacco use type: Cigarette Cigarettes Per Day: 10 Years Smoked: 30 Review of Systems Const Details: Review of Systems Constitutional: Denies fever, chills, weight loss ENT: Denies vision changes, eye pain or eye redness, dental caries, dry mouth GI: Denies nausea, vomiting, diarrhea, abdominal pain, change in BM Pulm: Denies SOB, LOPEZ, hemoptysis, wheezing Cards: Denies chest pain, palpitations Skin: Denies Raynaud's, rash, nail changes, photosensitivity, SANITARY 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 Regular rhythm, S1-S2 heard, no murmurs, rubs or gallops. LUNG:? Clear to percussion and auscultation EXTREMITIES:? No edema, no calf tenderness, normal peripheral pulses. NEURO:? Oriented and alert x3.? No focal weakness.? Reflexes symmetric.? Gait normal. SKIN:? There are no skin lesions evident. No objective signs of Raynaud's phenomenon. JOINT EXAM: Hands:.? Normal pain-free range of motion without tenderness, swelling, increased warmth or erythema. Able to make a full fist and has a good hand screen printer strength. Wrists:.? Normal pain-free range of motion without tenderness, swelling, increased warmth or erythema. Elbows:. Bilateral Contractures, decreased range of motion with tenderness to left, left swelling but no increased warmth to bilateral lateral epicondyles Shoulders:.?? Full range of motion without pain. No tenderness, weakness, swelling, increased warmth or erythema. Hips:.? Full range of motion without pain. mild tenderness to right glute Hip bursa:.? No tenderness. Knees:.?? Normal pain-free range of motion without tenderness, swelling, increased warmth or erythema.? There is no effusion or crepitation. tenderness to right lateral, area of fibia head Ankles:.? Normal pain-free range of motion without tenderness, swelling, increased warmth or erythema. Feet:.? Normal pain-free range of motion without tenderness, swelling, increased warmth or erythema. Tender points:? No tenderness to digital palpation at the occiput, trapezius, second rib, lateral epicondyle, knees, greater trochanter bilaterally, and left gluteal. Results Reviewed Results Reviewed: Laboratory Tests 05/19/18 06/16/23 07/14/23 09:00 12:33 09:36 WBC 5.8 RBC 5.40 Hgb 9.2 L Hct 34.0 L MCV 63.0 L MCH 17.0 L MCHC 27.1 L RDW 21.4 H Plt Count 192 ESR 7 Sodium Potassium Chloride Carbon Dioxide BUN Creatinine AST ALT Alkaline Phosphatase C-Reactive Protein Total Protein 25-OH Vitamin D Total 10.3 L Rheumatoid Factor 25.3 H Cycl Citrul Peptide IgG 39 H 03/22/24 09:45 WBC 4.7 L RBC 5.17 Hgb 9.0 L Hct 32.6 L MCV 63.1 L MCH 17.4 L MCHC 27.6 L RDW 20.9 H Plt Count 186 ESR 5 Sodium 139 Potassium 3.9 Chloride 110 H Carbon Dioxide 24 BUN 11 Creatinine 0.63 AST 21 ALT 19 Alkaline Phosphatase 116 C-Reactive Protein 0.24 Total Protein 6.9 25-OH Vitamin D Total Rheumatoid Factor Cycl Citrul Peptide IgG XR Bilateral Elbows FINDINGS: RIGHT ELBOW: There is minimal reduction in the radioulnar and humeral joint space with moderate ventral spurring along the coronoid process. There is no joint effusion, loose bodies or fracture seen. The soft tissues are normal. LEFT ELBOW: The joint spaces are maintained normal. There are no loose bodies, bony erosive changes or spurring. No visible acute fracture, dislocation. No abnormal joint effusion. The soft tissues are normal. Assessment & Plan Assessment & Plan (1) Seropositive rheumatoid arthritis: Code(s): M05.9 - Rheumatoid arthritis with rheumatoid factor, unspecified Category: Medical Plan: #Seropositive Erosive RA Patient with seropositive erosive rheumatoid arthritis that is not well controlled on leflunomide monotherapy. Has tried methotrexate but this was accompanied by side effects of this was stopped. She also tried Humira and then Enbrel but these were both ineffective she then tried Orencia but this was also ineffective and stopped. Discussed with her other options we will proceed with tocilizumab infusion. 4 milligrams/kilogram every 4 weeks. Discussed the side effect profile with her. She denies any history of diverticulitis. In the meantime we will give her prednisone to cover her joint pains. While we wait for prior authorization. (2) Vitamin D deficiency: Code(s): E55.9 - Vitamin D deficiency, unspecified Category: Medical Plan: #Vit D Deficiency Patient with severe vitamin-D deficiency we will need high-dose vitamin-D weekly. 43271 units weekly. (3) Long-term current use of tocilizumab: Code(s): Z79.899 - Other custodial (current) drug therapy Category: Medical Plan: #Long-term Use of Tocilizumab Discussed the risks and benefits of tocilizumab with the management of this patient's rheumatic condition. ? Benefits include decreased pain, improved mortality, improved quality of life Risks include LFT abnormalities, elevated triglycerides, GI perforations Contraindicated in a patient with history of diverticulitis Monitoring: ?CBC, CMP, triglycerides (4) On prednisone therapy: Code(s): Z79.52 - care home (current) use of systemic steroids Category: Medical Plan: #Long-term Use of Steroids Discussed with patient the risks and benefits of steroid for managing the rheumatic condition Benefits include: - Reduced pain, improved mobility, increased participation in activities, and decreased progression of disease Risks include: - GI upset, potential ultrasound worsening or formation (especially in patients > 65 years old), elevated blood pressure/worsening hypertension, elevated blood sugar/worsening diabetes control, worsening of bone density, elevated lipids/worsening triglycerides, cataract formation, weight gain Recommended using proton pump inhibitors (PPIs) for the duration of steroid use to reduce the risk of gastric ulcers and vitamin-D daily to reduce the risk of osteoporosis Labs checked: ?A1c, T spot, hepatitis-B and C serologies Pneumocystis jiroveci prophylaxis: ?Patient with risk factors including steroids greater than 50 mg for more than 30 days, age greater than 60 years, and lung involvement from underlying rheumatic disease requires prophylaxis and will be given so Plan I spent 60 minutes reviewing the record and labs, seeing the patient, discussing the treatment plan, completing infusion order documentation and documenting in the medical record Orders: Orders Comprehensive Met. Panel 3 Months M05.9 - Rheumatoid arthritis with rheumatoid factor, unspecified C Reactive Protein 3 Months M05.9 - Rheumatoid arthritis with rheumatoid factor, unspecified Complete Blood Count Auto Diff Today M05.9 - Rheumatoid arthritis with rheumatoid factor, unspecified Comprehensive Met. Panel Today M05.9 - Rheumatoid arthritis with rheumatoid factor, unspecified Erythrocyte Sedimentation Rate Today M05.9 - Rheumatoid arthritis with rheumatoid factor, unspecified Vitamin D 25-OH Total 3 Months E55.9 - Vitamin D deficiency, unspecified Lipid Panel 3 Months M05.9 - Rheumatoid arthritis with rheumatoid factor, unspecified, Z79.899 - Other terminal supervisor (current) drug therapy Erythrocyte Sedimentation Rate 3 Months M05.9 - Rheumatoid arthritis with rheumatoid factor, unspecified Complete Blood Count Auto Diff 3 Months M05.9 - Rheumatoid arthritis with rheumatoid factor, unspecified Hepatitis A,B,C Profile Today M05.9 - Rheumatoid arthritis with rheumatoid factor, unspecified T Spot TB Today M05.9 - Rheumatoid arthritis with rheumatoid factor, unspecified C Reactive Protein Today M05.9 - Rheumatoid arthritis with rheumatoid factor, unspecified Referrals Infusion Center Notification M05.9 - Rheumatoid arthritis with rheumatoid factor, unspecified Medications: New methylprednisolone (Medrol) Take 4 tablets for 2 weeks then 3 tablets for 2 weeks then 2 tablets for 2 weeks then 1 tablet for 60 days 4 mg PO DAILY 90 days 186 tabs 0RF cholecalciferol (vitamin D3) 1,250 mcg PO QWEEK 90 days 13 caps 0RF Coding Level of Care Code Est Pt Level 5 (75332) Complex EM visit Add On G2211 Diagnoses Seropositive rheumatoid arthritis M05.9 Vitamin D deficiency E55.9 Long-term current use of tocilizumab Z79.899 On prednisone therapy Z79.52
[2024-04-21 07:51] VITALS: BP 112/70; PULSE 82; O2SAT 97; BMI 31.4
== END 2024-04-21 08:55 | disposition home or self-care (01) ==
PROVIDERS: PCP Family Medicine; Visit Provider Student in an Organized Health Care Education/Training Program
DX: M05.79 Rheumatoid arthritis with rheumatoid factor of multiple sites without organ or systems involvement (principal); E55.9 Vitamin D deficiency, unspecified; Z79.899 Other long term (current) drug therapy; Z79.52 Long term (current) use of systemic steroids
CPT/HCPCS: 99215; 99417

== ENCOUNTER → 2024-04-21 07:44 | Outpatient (BNVA) | payer MEDICAID, SELFPAY | PROVIDERS: PCP Family Medicine; Visit Provider Student in an Organized Health Care Education/Training Program | DX: M05.9 Rheumatoid arthritis with rheumatoid factor, unspecified (principal); E55.9 Vitamin D deficiency, unspecified; Z79.52 Long term (current) use of systemic steroids; Z79.899 Other long term (current) drug therapy | CPT/HCPCS: 99212 ==

== ENCOUNTER 2024-09-21 10:33 | Outpatient (REF) | payer MEDICAID, SELFPAY ==
[2024-09-21 11:21] LABS: MANUAL DIFF FLAG NO
[2024-09-21 11:43] LABS: Basophils Absolute Auto 0.1 X10*3/uL (0.0-0.2); Basophils Percent Auto 0.7 % (0-2); Eosinophils Absolute Auto 0.1 X10*3/uL (0.0-0.4); Hematocrit 34.4 % (37.0-47.0); Hemoglobin 9.1 g/dl (12.0-16.0); Imm Gran Abs Auto 0.01 X10*3/uL (0.00-0.03); Imm Gran Pct Auto 0.1 % (0.0-0.4); Lymphocytes Absolute Auto 1.2 X10*3/uL (1.2-4.9); Lymphocytes Percent Auto 17.5 % (20-40); Mean Corpuscular HGB Conc 26.5 g/dl (31.0-35.0); Mean Corpuscular Hemoglobin 17.5 pg (27.0-33.0); Mean Corpuscular Volume 66.2 fL (80.0-98.0); Monocytes Absolute Auto 0.6 X10*3/uL (0.1-1.2); Monocytes Percent Auto 9.3 % (2-11); Neutrophils Absolute Auto 4.8 x10*3/uL (2.0-8.3); Neutrophils Percent Auto 71.4 % (45-73); Platelet Count 265 X10*3/uL (160-400); Red Cell Distribution Width 19.5 % (11.0-16.0); White Blood Count 6.7 X10*3/uL (4.8-10.8)
[2024-09-21 12:16] LABS: Alanine Aminotransferase 15 U/L (0-31); Albumin Level 3.9 g/dL (3.5-5.0); Alkaline Phosphatase 142 U/L (39-117); Anion Gap 9 (12-20); Aspartate Amino Transferase 23 U/L (5-31); Bilirubin Total 0.4 mg/dL (0.0-1.0); Blood Urea Nitrogen 9 mg/dL (9-16); C Reactive Protein 0.32 mg/dL (< or = 0.50); Calcium 8.8 mg/dL (8.4-10.2); Carbon Dioxide 26 mmol/L (22-29); Chloride 109 mmol/L (96-108); Cholesterol 159 mg/dL (<200); Estimated Glomerular Filt Rate > 60; Glucose Random 89 mg/dL (60-115); HDL Cholesterol 49 mg/dL (>40); Iron 11 mcg/dL (30-160); LDL Cholesterol Calculated 86 mg/dL (<100); Percent Iron Saturation 3 % (15-50); Potassium 3.9 mmol/L (3.3-5.1); Sodium 140 mmol/L (135-145); Total Iron Binding Capacity 354 mcg/dL (228-428); Total Protein 8.2 g/dL (6.5-8.0); Triglycerides 124 mg/dL (<150); Unsaturated Iron Binding 343 ug/dL
[2024-09-21 12:18] LABS: Vitamin D 25-OH Total 8.8 ng/mL (>30)
[2024-09-21 12:20] LABS: HBc Num1 0.13 S/CO (0.00-0.79); HBsAGNum1 0.32 S/CO (0.00-0.99); Hepatitis A Antibody IgM 0.21 Index (0-0.79); Hepatitis B Core Antibody Nonreactive (Nonreactive); Hepatitis B Surface Antigen Negative (Negative); ~HepC Num1 0.13 S/CO (0.00-0.79); ~Hepatitis A Antibody IgM Nonreactive (Nonreactive); ~Hepatitis B Surface Antibody NONREACTIVE (Nonreactive); ~Hepatitis C Antibody Nonreactive (Nonreactive)
[2024-09-21 12:51] LABS: Erythrocyte Sedimentation Rate 21 MM/HR (0-20)
[2024-09-24 00:23] LABS: TS Negative Control Passed; TS Panel A 3; TS Panel B 1; TS Positive Control Passed; TSpotTB Negative (Negative)
== END 2024-09-21 10:34 | disposition home or self-care (01) ==
LOC: HO.HHCL 10:33
PROVIDERS: Student in an Organized Health Care Education/Training Program; Visit Provider Family Medicine
DX: M05.9 Rheumatoid arthritis with rheumatoid factor, unspecified (principal); E55.9 Vitamin D deficiency, unspecified; Z79.899 Other long term (current) drug therapy; D64.9 Anemia, unspecified
CPT/HCPCS: 36415; 80053; 80061; 82306; 83540; 85025; 85652; 86140; 86481; 86704; 86706; 86709; 86803; 87340

== ENCOUNTER 2024-09-28 12:06 | Outpatient (REF) | payer MEDICAID, SELFPAY ==
[2024-10-03 14:27] LABS: Oxymorphone, Ur 144
[2024-10-03 14:28] LABS: Codeine, Ur NEGATIVE; Hydrocodone, Ur NEGATIVE; Morphine, Ur NEGATIVE; Noroxycodone, Ur 166; Oxycodone, Ur 64
[2024-10-03 14:29] LABS: Hydromorphone, Ur NEGATIVE; Norhydrocodone, Ur NEGATIVE
== END 2024-09-28 12:07 | disposition home or self-care (01) ==
LOC: HO.LNP 12:06
PROVIDERS: Visit Provider Family Medicine
DX: F11.20 Opioid dependence, uncomplicated (principal); Z51.81 Encounter for therapeutic drug level monitoring
CPT/HCPCS: 80365; G0480